=== PATIENT | female | born 1990 | race Caucasian/White ===

== ENCOUNTER 2017-07-31 01:57 | Inpatient (IN) | payer SELFPAY ==
[~2017-07-31] VITALS: Ht 162.6 cm; Wt 88.0 kg
[~2017-07-31 01:57] MED LIST: AMOXICILLIN500 MG PO; AMOXICILLIN875 MG OR; CIPRO500 MG PO; CIPROFLOXACN500 MG PO; CLARITHROMYC500 MG PO; DOXYCYCL HYC100 M3 PO; FIORINA1 OR; FLEXERIL5 M1 PO; FLONASE NASAL50 MCG; HYDROCORTISO2.51 EX; LORTAB5 PO; MEDROL4 M1 OR; MINASTRIN FE; NAPROSYN500 MG PO; OMNICEF300 MG PO; PERCOCET 5/325M1 TAB OR; PHENERGAN SUPP RE; PHENERGAN25 MG/TAB PO; PROAIR HFA IN; PROMETHAZINE25 MG OR; SINGLAIR 4 MG TA4 MG PO; TOBRAMYCIN0.3 % OU; TORADOL PO; ZOFRAN ODT4 MG PO; ZYRTEC10 M5 PO
[2017-07-31 02:53] LABS: HEMATOCRIT 41.6 % (37.0-47.0); HEMOGLOBIN 14.1 g/dl (12.0-16.0); IMMATURE GRANULOCYTES 0.3 % (0.0-1.0); MEAN CELL VOLUME 81.6 fL CALC (80.0-100.0); MEAN CORPUSCULAR HGB 27.6 pG CALC (26.0-32.0); MEAN CORPUSCULAR HGB CONC 33.9 g/L CALC (32.0-36.0); NEUT# 12.47 thou/uL (2.00-7.15); RED BLOOD COUNT 5.1 mill/uL (4.20-5.60); RED CELL DISTRI WIDTH 13.3 % (11.5-15.5); URINE BLOOD DIPSTICK NEGATIVE (NEGATIVE); URINE CLARITY CLEAR; URINE COLOR YELLOW; URINE GLUCOSE - DIPSTICK NEGATIVE (NEGATIVE); URINE KETONE 15 mg/dL (NEGATIVE); URINE LEUK ESTERASE NEGATIVE (NEGATIVE); URINE NITRITE - DIPSTICK NEGATIVE (Negative); URINE PH 5.5 (4.5-8.0); URINE PROTEIN - DIPSTICK NEGATIVE (NEG-TRACE); URINE SPECIFIC GRAVITY >=1.030; URINE UROBILINOGEN - DIPSTICK 0.2 E.U./dL (0.2)
[2017-07-31 03:11] LABS: URINE BILIRUBIN - DIPSTICK NEGATIVE (NEGATIVE)
[2017-07-31 03:16] LABS: ALBUMIN 4.7 g/dL (3.2-5.0); ALKALINE PHOSPHATASE 115 u/l (38-126); AMYLASE 57 u/l (30-110); ANION GAP 16 (6-22 (CALC)); BILIRUBIN, TOTAL 0.7 mg/dL (0.0-1.4); BUN 15 mg/dL (7-17); BUN/CREATININE RATIO 24 (12-20 (CALC)); CARBON DIOXIDE 22 mmol/l (22-30); CHLORIDE 106 mmol/l (95-108); CREATININE 0.6 mg/dL (0.5-1.0); GFR > 60 ML/MIN (>=60 (CALC)); GFR FOR AFR.AMER. > 60 ML/MIN (>=60 (CALC)); GLUCOSE 128 mg/dL (65-105); LIPASE 93 u/l (23-300); SGOT/AST 19 u/l (14-36); SGPT/ALT 30 u/l (9-52); SODIUM 140 mmol/l (137-146); TOTAL PROTEIN 8.2 g/dL (6.3-8.2)
[2017-07-31 09:34] VITALS: BP 116/59
[2017-07-31 15:00] VITALS: BP 111/68
[2017-07-31 19:20] VITALS: BP 113/80
[2017-08-01 00:20] VITALS: BP 111/70
[2017-08-01 04:30] VITALS: BP 115/81
[2017-08-01 05:23] LABS: HEMOGLOBIN 11.3 g/dl (12.0-16.0); IMMATURE GRANULOCYTES 0.5 % (0.0-1.0); MEAN CELL VOLUME 85.4 fL CALC (80.0-100.0); MEAN CORPUSCULAR HGB 27.6 pG CALC (26.0-32.0); MEAN CORPUSCULAR HGB CONC 32.3 g/L CALC (32.0-36.0); NEUT# 3.21 thou/uL (2.00-7.15); RED BLOOD COUNT 4.1 mill/uL (4.20-5.60); RED CELL DISTRI WIDTH 13.8 % (11.5-15.5)
[2017-08-01 05:42] LABS: ANION GAP 12 (6-22 (CALC)); BUN 6 mg/dL (7-17); BUN/CREATININE RATIO 11 (12-20 (CALC)); CALCIUM 8.4 mg/dL (8.4-10.2); CARBON DIOXIDE 24 mmol/l (22-30); CHLORIDE 110 mmol/l (95-108); CREATININE 0.5 mg/dL (0.5-1.0); GFR > 60 ML/MIN (>=60 (CALC)); GFR FOR AFR.AMER. > 60 ML/MIN (>=60 (CALC)); GLUCOSE 114 mg/dL (65-105); POTASSIUM 3.6 mmol/l (3.5-5.1); SODIUM 142 mmol/l (137-146)
[2017-08-01 09:07] VITALS: BP 115/81
[2017-08-01 16:00] VITALS: BP 110/66
[2017-08-01 18:45] VITALS: BP 121/77
[2017-08-02 04:10] VITALS: BP 88/62
[2017-08-02 07:08] LABS: HEMOGLOBIN 11.2 g/dl (12.0-16.0); IMMATURE GRANULOCYTES 0.2 % (0.0-1.0); MEAN CELL VOLUME 85.6 fL CALC (80.0-100.0); MEAN CORPUSCULAR HGB 27.4 pG CALC (26.0-32.0); NEUT# 2.11 thou/uL (2.00-7.15); RED BLOOD COUNT 4.09 mill/uL (4.20-5.60); RED CELL DISTRI WIDTH 13.8 % (11.5-15.5)
[2017-08-02 07:26] LABS: ANION GAP 16 (6-22 (CALC)); BUN 3 mg/dL (7-17); BUN/CREATININE RATIO 6 (12-20 (CALC)); CALCIUM 8.5 mg/dL (8.4-10.2); CARBON DIOXIDE 23 mmol/l (22-30); CHLORIDE 108 mmol/l (95-108); CREATININE 0.6 mg/dL (0.5-1.0); GFR > 60 ML/MIN (>=60 (CALC)); GFR FOR AFR.AMER. > 60 ML/MIN (>=60 (CALC)); GLUCOSE 97 mg/dL (65-105); POTASSIUM 3.7 mmol/l (3.5-5.1); SODIUM 144 mmol/l (137-146)
[2017-08-02 08:15] VITALS: BP 102/69
[2017-08-02] MEDS ORDERED: FLORASTOR250 M1 PO (10:48)
[2017-08-02] MEDS ORDERED: CIPROFLOXACN500 MG PO (10:49)
[2017-08-02] MEDS ORDERED: METRONIDAZOL500 MG PO (10:49)
== END 2017-08-02 12:09 | disposition home or self-care (01) | DRG 390 ==
LOC: ED 01:57 → ED-I 02:49 → ED 02:49 → ED-I 07:42 → ED 08:11 → MS2 08:12
PROVIDERS: Emergency Medicine; Nurse Practitioner Family; ADMIT Internal Medicine; ATTEND Internal Medicine
PROC: 0D9670Z Drainage of Stomach with Drainage Device, Via Natural or Artificial Opening (ICD-10-PCS; principal; 2017-07-31)
DX: K56.60 Unspecified intestinal obstruction (principal); Z87.442 Personal history of urinary calculi
CPT/HCPCS: Q9967; S0164